=== PATIENT | male | born 1950 | race Caucasian/White ===

== ENCOUNTER → 2021-01-07 | Outpatient (CLI) | payer MEDICARE ==
[~2021-01-07] MED LIST: ALLO300 PO; CHLO25B PO; CITA20 PO; LISI20 PO; METF500 PO; Omeprazole20 M1 PO; ROSU10TA PO
== END | disposition home or self-care (01) ==
LOC: LAB SHORT 10:56 → PLD 10:56
DX: B35.1 Tinea unguium (principal); L60.2 Onychogryphosis
CPT/HCPCS: 88304; 88312

== ENCOUNTER 2022-09-07 12:29 | Day surgery (SDC) | payer MEDICARE ==
[~2022-09-07] VITALS: Ht 180.3 cm; Wt 145.5 kg
[2022-09-07] MEDS ORDERED: FURO40 (12:47)
[2022-09-07] MEDS ORDERED: COLCRYS0.6 M1 (12:51)
== END 2022-09-07 15:50 | disposition home or self-care (01) ==
LOC: ORSCSDS 12:29
PROVIDERS: Internal Medicine Gastroenterology
PROC: 0DBM8ZX Excision of Descending Colon, Via Natural or Artificial Opening Endoscopic, Diagnostic (ICD-10-PCS; principal; 2022-09-07 14:00)
DX: Z12.11 Encounter for screening for malignant neoplasm of colon (principal); Z86.010 Personal history of colon polyps; Z80.0 Family history of malignant neoplasm of digestive organs; D12.4 Benign neoplasm of descending colon; K57.30 Diverticulosis of large intestine without perforation or abscess without bleeding; K64.8 Other hemorrhoids; G47.33 Obstructive sleep apnea (adult) (pediatric); E11.9 Type 2 diabetes mellitus without complications; Z79.84 Long term (current) use of oral hypoglycemic drugs; Z79.899 Other long term (current) drug therapy; E66.01 Morbid (severe) obesity due to excess calories; Z68.42 Body mass index [BMI] 45.0-49.9, adult
CPT/HCPCS: 82947; 88305; J2704; J7120